=== PATIENT | female | born 1970 | race African-American/Black ===

== ENCOUNTER 2021-03-22 20:27 | Emergency (ER) | payer OTHER, BC ==
[~2021-03-22] VITALS: Ht 152.4 cm; Wt 76.6 kg
[2021-03-22] MEDS ORDERED: ZOLOFT50 MG PO (21:03)
[2021-03-22] MEDS ORDERED: FLOXIN OTIC0.3 % AU (21:06)
[2021-03-22] MEDS ORDERED: AMOXICILLIN875 MG PO (21:06)
[2021-03-22 21:17] VITALS: BP 107/53
== END 2021-03-22 21:17 | disposition home or self-care (01) | DRG 153 ==
LOC: ED 20:27
DX: H66.93 Otitis media, unspecified, bilateral (principal); F41.9 Anxiety disorder, unspecified; F32.A Depression, unspecified